=== PATIENT | female | born 1935 | race American Indian/Alaskan Native ===

== ENCOUNTER 2019-01-03 11:02 | Day surgery (SDC) | payer MEDICARE, OTHER ==
[2019-01-02 10:16] VITALS: BMI 26.5
[2019-01-03 11:41] LABS: BASO # 0.07 K/mm3 (0.0-2.0); BASO % 0.8 % (0.0-3.0); HEMOGLOBIN 14.4 g/dL (12.0-16.0); LYMPH # 2.6 (1.2-3.4); LYMPH % 28.9 % (22.0-35.0); MEAN CELL VOLUME 84.3 fl (80.0-105.0); MEAN CORPUSCULAR HEMOGLOBIN 28.3 pg (25.0-35.0); MEAN CORPUSCULAR HGB CONC 33.6 g/dl (31.0-37.0); MEAN PLATELET VOLUME 9.3 fl (7.0-11.0); MONO # 0.5 (0.1-0.6); MONO % 5.3 % (1.0-6.0); PLATELET COUNT 256 10^3/uL (120.0-450.0); RBC 5.09 10^6/uL (3.5-6.1); RED CELL DISTRIBUTION WIDTH 13.9 % (11.5-14.5)
[2019-01-03 11:48] LABS: BLOOD UREA NITROGEN 17 mg/dL (7-21); CALCIUM 10.5 mg/dL (8.4-10.5); GFR NON-AFRICAN AMERICAN 60
[2019-01-03 11:50] LABS: INR 0.99; PARTIAL THROMBOPLASTIN TIME 40.8 Seconds (26.9-38.3); PROTHROMBIN TIME 11.2 SECONDS (9.4-12.5)
[2019-01-03 11:51] VITALS: RESP 20
[2019-01-03 12:02] LABS: ANISOCYTOSIS SLIGHT; ATYPICAL LYMPHOCYTE 2 % (0.0-0.0); EOSINOPHIL 16 % (0.0-3.0); LYMPHOCYTE 32 % (22.0-35.0); MONOCYTE 2 % (1.0-6.0); NEUTROPHIL 48 % (50.0-70.0); PLATELET ESTIMATE NORMAL (NORMAL)
[2019-01-03] MEDS ORDERED: Midazolam 2 MG/2 ML VIAL ONE (15:32)
[2019-01-03] MEDS ORDERED: Midazolam 2 MG/2 ML VIAL IVP ONE (16:05)
[2019-01-03] MEDS ORDERED: Oxycodone/Acetaminophen 5/325 mg Tab PO PRN (16:18)
[2019-01-03] MEDS ORDERED: Sodium Chloride 0.45% 1,000 ML IV SCH (16:30)
[2019-01-03 17:08] VITALS: PULSE 68; TEMP 97.6
[2019-01-03 18:26] VITALS: BP 138/69; O2SAT 97
--- NOTE | 2019-01-03 18:28 | RAD ---
HISTORY: rt lung bx COMPARISON: Chest x-ray performed 10/07/17 TECHNIQUE: Chest, one view. FINDINGS: LUNGS: 3.5 x 5.1 cm right upper lobe rounded mass like opacity. Please note that chest x-ray has limited sensitivity for the detection of pulmonary masses. PLEURA: No significant pleural effusion identified. No definite pneumothorax . CARDIOVASCULAR: Heart size appears top normal. Ectatic aorta. Atherosclerotic calcifications. OSSEOUS STRUCTURES: Degenerative changes. VISUALIZED UPPER ABDOMEN: Unremarkable. OTHER FINDINGS: None. IMPRESSION: 3.5 x 5.1 cm right upper lobe rounded masslike opacity. Recommend correlation with outside CT. By history patient is status post lung biopsy. No definite pneumothorax.
--- NOTE | 2019-01-03 18:40 | CT ---
PROCEDURE: CT guided upper lobe lung biopsy. HISTORY: Ex-smoker. Two lung masses. Evaluate for malignancy PHYSICIAN(S): Lv Thomason MD. TECHNIQUE: The relative risks and indications of the procedure were explained to the patient and consent obtained. The patient was placed supine on the CT scanner and preliminary images through the upper lungs obtained. Conscious sedation and monitoring were provided throughout the procedure by a nurse. There is a 2.2 cm irregular noncalcified mass in the right upper lobe anteriorly.. A right anterior approach was selected and the area prepped and draped in the usual sterile fashion. 1% Xylocaine was used to anesthetize the skin and soft tissues. A 19 gauge guiding needle was advanced into the 2.2 cm right upper lobe lung mass. Its position was confirmed with CT. Using coaxial technique, multiple core biopsies were obtained. The postprocedure images show no evidence of large pneumothorax or significant hemorrhage.. IMPRESSION: 1. CT-guided right upper lobe lung biopsy as described above.
== END 2019-01-03 18:45 | disposition home or self-care (01) ==
LOC: SDS 11:02
PROVIDERS: ATTEND Radiology Vascular & Interventional Radiology
DX: C34.11 Malignant neoplasm of upper lobe, right bronchus or lung (principal); I10 Essential (primary) hypertension; J43.9 Emphysema, unspecified; Z86.73 Personal history of transient ischemic attack (TIA), and cerebral infarction without residual deficits; Z87.891 Personal history of nicotine dependence
CPT/HCPCS: 32405; 36415; 71045; 77012; 80048; 85025; 85610; 85730; 88305; J2250; J2405; J3010; J7030